=== PATIENT | female | born 1930 | race Caucasian/White ===

== ENCOUNTER 2018-04-29 13:32 | Emergency (ER) | payer MEDICARE, OTHER ==
[~2018-04-29 13:32] MED LIST: Sulfamethoxazole/Trimethoprim 800-160 MG Tab ONE
--- NOTE | 2018-04-29 20:42 | ER ---
Date of Service: 04/29/2018 HISTORY OF PRESENT ILLNESS: The patient is an 88-year-old female, comes in today with a chief complaint of burning with urination. She does not have fevers or chills. She does have 1 episode of emesis. She does not have flank pain. ALLERGIES: CODEINE, WHICH IS MORE OF AN INSENSITIVITY. CURRENT MEDICATIONS: Aspirin, dipyridamole, losartan 100 mg p.o. daily, hydrochlorothiazide 50 mg p.o. daily, Lipitor 20 mg p.o. daily. The patient takes an occasional ibuprofen and Excedrin headache. PHYSICAL EXAMINATION: GENERAL: She is alert, oriented, in no apparent distress. VITAL SIGNS: Blood pressure is 111/59, pulse of 61, respirations 18, O2 saturation is 96%, temperature is 99.8. HEENT: Unremarkable. NECK: Supple. No nodes. No bruits. HEART: Regular sinus rhythm. LUNGS: Clear. ABDOMEN: Benign. EXTREMITIES: No clubbing, cyanosis, or edema. LABORATORY DATA: The patient had a urine dip, which shows a large amount of leukocyte esterase and moderate occult blood. ASSESSMENT: Urinary tract infection. PLAN: We will put the patient on some Bactrim DS 1 p.o. b.i.d. I have encouraged the patient to drink plenty of fluids with this. If she is not improving by tomorrow, we would have her return to clinic and would switch antibiotics. She is up here visiting , I did not obtain a urine culture. MOE/MONA /[id number]
== END 2018-04-29 14:11 | disposition home or self-care (01) ==
LOC: LB.ED 13:32
DX: N39.0 Urinary tract infection, site not specified (principal); Z88.5 Allergy status to narcotic agent
CPT/HCPCS: 81001; 99283; A9270-GY